=== PATIENT | male | born 2000 | race Caucasian/White ===

== ENCOUNTER 2022-01-02 10:30 | Emergency (ER) | payer BC ==
[~2022-01-02] VITALS: Ht 175.3 cm; Wt 90.7 kg
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
[2022-01-02] MEDS ORDERED: ONDANSETRON HCL/PF 4 MG/2 ML VIAL ONE (11:55)
[2022-01-02] MEDS ORDERED: KETOROLAC TROMETHAMINE 15 MG/ML VIAL ONE (11:55)
[2022-01-02] MEDS ORDERED: MORPHINE SULFATE INJ 4 MG/ML DISP.SYRIN ONE (11:55)
--- NOTE | 2022-01-02 12:01 | NUR ---
PT TAKEN TO CT VIA WANDA
[2022-01-02] MEDS: LIDOCAINE 5% (PATCH) 1 EA PATCH TP SCH (12:21)
[2022-01-02] MEDS: ONDANSETRON HCL/PF 4 MG/2 ML VIAL IVP ONE (12:21)
[2022-01-02] MEDS: KETOROLAC TROMETHAMINE INJ 30 MG/ML VIAL IV ONE (12:21)
[2022-01-02] MEDS: MORPHINE SULFATE INJ 2 MG/ML DISP.SYRIN IM ONE (12:21)
--- NOTE | 2022-01-02 13:56 | NUR ---
Patient discharged to home in stable condition. Written and verbal after care instructions given. Patient verbalizes understanding of instruction.IV removed. Catheter intact and site benign. Pressure and 4x4 applied to site. No bleeding noted.
[2022-01-02 13:57] VITALS: BP 131/84
== END 2022-01-02 13:57 | disposition home or self-care (01) ==
LOC: ER 10:33
DX: M51.26 Other intervertebral disc displacement, lumbar region (principal); M48.061 Spinal stenosis, lumbar region without neurogenic claudication
CPT/HCPCS: 72131; 96372; 96374; 96375; 99285; J1885; J2270; J2405